=== PATIENT | female | born 1965 | race Caucasian/White ===

== ENCOUNTER → 2017-02-17 | Outpatient (CLI) | payer OTHER ==
[~2017-02-17] MED LIST: CELEBREX PO; NEURONTIN PO
--- NOTE | ~2017-02-17 | MR32 ---
[facility]. [facility] A Service of [facility] / [facility] RADIOLOGY TEXT RESULTS PATIENT: TAMARA HEAD LOCATION: [facility] : [birth year] UNIT #: [id number] AGE: [address]: Noemi Sow MD SEX: F ORDER DR: [id number] [address] [address] [id number] O MR#: [id number] Acc #: [id number] NAME: TAMARA HEAD : 1965 SEX: F STUDY DATE/TIME: 02/17/2017 13:35 UNIT: [facility] ROOM: STUDY DESCRIPTION: MR Cervical Wo Contrast Attending Physician: Noemi Sow M.D. Referring Physician: Noemi Sow M.D. Ordering Physician: Noemi Sow M.D. Primary Care Physician: Noemi Sow M.D. MRI CENTER REPORT This report is preliminary unless electronic signature is present. EXAM MRI of the cervical spine without contrast dated 02/17/2017. COMPARISON MRI cervical spine without contrast dated 07/14/2014. HISTORY Neck pain, headaches and degenerative disc disease along with dizziness have been going on for many years, chronic. It appears to have worsened recently. FINDINGS Multisequence multiplanar imaging of the cervical spine was obtained without contrast. There is loss of normal cervical curvature. Degenerative disc disease is at multiple levels. Cervical cord demonstrates normal course, caliber and signal. Pre and paravertebral soft tissues do not demonstrate any significant abnormality. C2-3: Concentric disc bulge with mild bilateral facet changes. No canal stenosis or neural foraminal narrowing. C3-4: Concentric disc bulge with no canal stenosis or neural foraminal narrowing. C4-5: Concentric disc bulge with small central protrusion. There is a right foraminal protrusion/uncinate spur with moderate to severe right neural foraminal narrowing. Borderline size to mild canal stenosis is seen. C5-6: Disc osteophyte complex with superimposed tiny central protrusion. Borderline-sized canal is noted without any significant neural foraminal narrowing. [facility] A Service of [facility] / [facility] RADIOLOGY TEXT RESULTS PATIENT: TAMARA HEAD LOCATION: [facility] : [birth year] UNIT #: [id number] AGE: [address]: Noemi Sow MD SEX: F ORDER DR: C6-7: Disc osteophyte complex with right uncinate spur/small right foraminal protrusion. Inferior moderate right neural foraminal narrowing is noted with patent superior aspect. No significant canal stenosis. C7-T1: Mild disc bulge with tiny central protrusion. No canal stenosis or neural foraminal narrowing. IMPRESSION 1. Degenerative changes are noted at multiple levels as described above. 2. Right uncinate spur/foramen is seen at C4-5 and C6-7 levels with associated neural foraminal narrowing. Correlate with C5 and C7 radiculopathy. 3. There is borderline-sized canal to mild canal stenosis at some of the midcervical levels without cord compression. 4. Cord is within normal limits. The findings are relatively stable at both levels given the differences in slice selection except for C4-5 where the right neural foraminal narrowing is relatively new in the last 3 years. Dictated by... Addi Montez M.D. THIS IS AN ELECTRONICALLY VERIFIED REPORT Addi Montez M.D. at 02/19/2017 5:29 PM CPR/rnr TD: 02/18/2017 14:08 JOB #: [id number] MRI CENTER REPORT Page 1 of 1
--- NOTE | ~2017-02-17 | MR18 ---
[facility] A Service of [facility] & [facility] RADIOLOGY TEXT RESULTS PATIENT: TAMARA HEAD LOCATION: [facility] : 67 UNIT #: [id number] AGE: [address]: Noemi Sow MD SEX: F ORDER DR: [id number] [address] [address] [id number] O MR#: [id number] Acc #: [id number] NAME: TAMARA HEAD : 1965 SEX: F STUDY DATE/TIME: 02/17/2017 13:14 UNIT: [facility] ROOM: STUDY DESCRIPTION: MR Brain Wo Contrast Attending Physician: Noemi Sow M.D. Referring Physician: Noemi Sow M.D. Ordering Physician: Noemi Sow M.D. Primary Care Physician: Noemi Sow M.D. MRI CENTER REPORT This report is preliminary unless electronic signature is present. EXAM MRI of the brain without contrast dated 02/17/2017 COMPARISON MRI of the brain without contrast dated 07/14/2014. HISTORY Blurred vision, headaches and dizziness for 10 years. Fatigue. Numbness in the right side of the face comes and goes. Symptoms appear to have worsened recently. FINDINGS Multisequence, Multiplanar imaging of the brain was obtained without contrast. No acute stroke, space occupying intracranial mass, mass effect, midline shift, or hydrocephalus. Scattered less than 5 mm few small tiny hyperintense T2 signal lesions are noted in the vein predominantly involving the white matter. Nasal septum is deviated to the left. Paranasal sinuses orbits and the ocular structures are unremarkable. There is minimal bilateral mastoid mucosal thickening. Thick slices through the sella with the pituitary gland, pineal region and internal auditory canals with the inner ear structures do not demonstrate any significant abnormality. Degenerative changes are noted in the cervical spine. IMPRESSION 1. Scattered hyperintense T2 signal lesions are noted in the brain involving the white matter particularly in bifrontal lobes. They are likely related to mild chronic microvascular ischemic change or migraine based on age and statistics. 2. No acute stroke, space occupying intracranial mass, hydrocephalus or midline shift. STS. [facility] A Service of [facility] & [facility] RADIOLOGY TEXT RESULTS PATIENT: TAMARA HEAD [facility] #: [id number] : [birth year] UNIT #: [id number] AGE: [address]: Noemi Sow MD SEX: F ORDER DR: Dictated by... Addi Montez M.D. THIS IS AN ELECTRONICALLY VERIFIED REPORT Addi Montez M.D. at 02/19/2017 5:29 PM CPR/rnr TD: 02/18/2017 13:39 JOB #: [id number] MRI CENTER REPORT Page 1 of 1
== END | disposition home or self-care (01) ==
LOC: SMRI 12:54
DX: R51 Headache (principal); M48.06 Spinal stenosis, lumbar region; M51.86 Other intervertebral disc disorders, lumbar region; M25.78 Osteophyte, vertebrae; H53.8 Other visual disturbances; R93.8 Abnormal findings on diagnostic imaging of other specified body structures
CPT/HCPCS: 70551; 72141